=== PATIENT | female | born 1950 | race Hispanic/Latino ===

== ENCOUNTER 2018-06-06 10:52 | Emergency (ER) | payer OTHER, MEDICARE ==
[~2018-06-06 10:52] MED LIST: CALC1TAB2 PO; GLIM2TAB3 PO; GLIM4TAB3 PO; LEVO50TA11 PO; LISI-613 PO; LOSA50TA25 PO; METF-444 PO; METO-391 PO; SIMV40TA59 PO
[2018-06-06] MEDS ORDERED: LIDOCAINE HCL MPF 1% 5ML VIAL ONE (11:14)
[2018-06-06] MEDS ORDERED: TETANUS/DIPHTHERIA TOXOID [ADULT] 0.5 ML VIAL IM ONE (11:14)
== END 2018-06-06 12:01 | disposition home or self-care (01) ==
LOC: EDH 10:52
DX: S61.216A Laceration without foreign body of right little finger without damage to nail, initial encounter (principal); E07.9 Disorder of thyroid, unspecified; I10 Essential (primary) hypertension; E11.9 Type 2 diabetes mellitus without complications; Z79.4 Long term (current) use of insulin; Z88.0 Allergy status to penicillin; W45.8XXA Other foreign body or object entering through skin, initial encounter; Y93.89 Activity, other specified; Y92.89 Other specified places as the place of occurrence of the external cause; Y99.8 Other external cause status
CPT/HCPCS: 12042; 73140; 90471; 90714; 99284; J3490